=== PATIENT | male | born 1965 | race Hispanic/Latino ===

== ENCOUNTER 2020-11-11 17:00 | Emergency (ER) | payer OTHER, SELFPAY ==
--- NOTE | 2020-11-11 17:07 | ED.NAVMDI ---
HPI - Nausea/Vomiting/Diarrhea General Chief complaint: Nausea/Vomiting/Diarrhea Stated complaint: nausea/vomiting/diarrhea Time Seen by Provider: 11/11/20 17:08 Source: patient and RN notes reviewed Mode of arrival: ambulatory Limitations: no limitations History of Present Illness HPI Narrative: 55-year-old male presents to the [facility] with complaints of nausea vomiting diarrhea for 2 weeks. Related Data Allergies Allergy/AdvReac Type Severity Reaction Status Date / Time No Known Allergies Allergy Verified 11/11/20 17:03 Review of Systems Review of Systems: All systems reviewed & are unremarkable except as noted in HPI and below Constitutional: Constitutional: Reports as per HPI, Denies chills, Reports fatigue and Denies fever(s) Eyes: Eyes: Reports no additional eye complaints ENT: Reports system reviewed and no additional complaints, except as documented, Denies vertigo, Denies dizziness, Denies nasal congestion and Denies sore throat Cardiovascular: Cardiovascular: Reports no additional cardiovascular complaints and Denies chest pain Respiratory: Respiratory: Reports no additional respiratory complaints, Denies chest congestion, Denies cough, Denies dyspnea and Denies wheezing Gastrointestinal: Gastrointestinal: Reports as per HPI, Denies abdominal pain, Denies constipation, Reports diarrhea (once daily), Reports nausea and Reports vomiting Genitourinary: Genitourinary: Reports no additional male genitourinary complaints Musculoskeletal: Musculoskeletal: Reports as per HPI and Reports myalgias (generalized) Integumentary/Breasts: Skin/Breast: Reports system reviewed and no additional complaints, except as docu Neurologic: Reports system reviewed and no additional complaints, except as documented, Denies dizziness, Denies numbness and Denies weakness Psychiatric: Psychiatric: Reports no additional psychiatric complaints Allergic/Immunologic: Allergic/Immunologic: Reports no additional allergic/immunologic complaints [facility] Past Medical History Medical History (Updated 11/12/20 @ 17:20 by Beverly Montesinos) No significant medical problems Surgical History Surgical History (Updated 11/12/20 @ 17:20 by Beverly Montesinos) No significant past surgical history Social History Social History (Updated 11/12/20 @ 17:20 by Beverly Montesinos) Living arrangements: with family Gender identity (if verbalized by the patient): Male Comments At the time of my signature, I reviewed and agree with the nursing past medical, surgical, social, and family history. There is no relevant family history pertinent to the patient complaint. Exam Const: General: alert and ill appearing acutely Nutritional Appearance: well nourished Orientation/consciousness: patient oriented x3 Limitations: language barrier (Use transportation engineer) HENMT: Head: normal to inspection Ears: external ears normal, TM's normal bilaterally and EAC's normal Eyes: Pupils: Equal, round and reactive pupils present Neck: Neck: normal visual inspection, no lymphadenopathy and no meningeal signs Chest: Chest palpation & inspection: normal inspection of the chest Resp: Effort & Inspection: normal respiratory effort Auscultation: clear to auscultation bilaterally Cardio: Rate: regular rate Rhythm: regular rhythm GI: GI Palp: Yes Soft to palpation, No Tenderness to palpation present (GI), No Guarding due to palpation present (GI), No Rigid due to palpation and No Rebound tenderness present Auscultation: normal bowel sounds Urinary Catheter: Urinary Catheter: patent and draining Back/Spine/Pelvis: Back: no CVA tenderness Skin: General skin exam: normal color Rashes: no rashes Wounds: no wounds Neuro: General: patient oriented x3, moves all extremities, no meningeal signs and no focal motor deficits Speech: normal speech Gait exam (Neuro): Normal gait present Extrem: General: normal to inspection Psych: Appearance: grossly normal and well
[2020-11-11 17:16] VITALS: BP 103/71; PULSE 84; RESP 16; TEMP 37.9; O2SAT 96
== END 2020-11-11 17:48 | disposition home or self-care (01) ==
PROVIDERS: Emergency Provider Nurse Practitioner
DX: U07.1 COVID-19 (principal); J45.909 Unspecified asthma, uncomplicated
CPT/HCPCS: 87426; 99202; C9803; G0463

== ENCOUNTER 2024-05-28 17:50 | Inpatient (IN) | payer SELFPAY ==
[2024-05-28] VITALS (11 sets, daily range): BP systolic 107–126; BP diastolic 69–94; PULSE 91–127; RESP 12–22; TEMP 37.2–39.6; O2SAT 94–96; BMI 27.1
--- NOTE | ~2024-05-28 | XR_ITS ---
CHEST RADIOGRAPH CLINICAL HISTORY: fever . COMPARISON: None available TECHNIQUE: Single portable view of the chest. FINDINGS The cardiomediastinal silhouette is unremarkable. Left upper and middle lobe density for which cross-sectional imaging (noncontrast enhanced CT examina tion of the chest) is recommended. The remainder of the lungs are clear. IMPRESSION: Left upper and middle lobe density for which cross-sectional imaging (noncontrast enhanced CT examina tion of the chest) is recommended. Reviewed, dictated and finalized at location A. IMPRESSION: Left upper and middle lobe density for which cross-sectional imaging (noncontra st enhanced CT examination of the chest) is recommended.
--- NOTE | ~2024-05-28 | CT_ITS ---
CLINICAL INDICATION: Abnormal chest x-ray, Febrile illness, Nausea COMPARISON: Reference is made to plain film evaluation of the chest performed approximately 30 minute s earlier.. TECHNIQUE: An enhanced CT of the chest, abdomen and pelvis was performed utilizing multislice spiral technique reconstructed at 5 mm slice thickness. Coronal and sagittal reconstructions were performed . This CT examination was performed utilizing dose reduction techniques. DLP: 723) mGy-cm FINDINGS/OBSERVATIONS: Lung: Dense consolidation of the base of the left upper lobe with patchy opacification of the right lower l obe. The remainder of the lungs are clear. Mediastinum: Scattered mediastinal lymphadenopathy is also identified, the largest lymph node within the aortopulm onary window measuring 21 mm in short axis dimension, as well as a subcarinal lymph node measuring 17 mm in short axis dimension. No additional lymphadenopathy within the bilateral axilla, or within the soft tissues of the anterior chest wall. Soft tissues of the chest: Unremarkable. Bones of the chest: No acute fracture. No lytic or blastic lesions are identified. Liver: The liver enhances homogeneously and is enlarged measuring 21cm in longitudinal dimension. Diffuse fa tty infiltration is also noted. Gallbladder and biliary system: The gallbladder is distended, but otherwise unremarkable. Pancreas: The pancreas enhances homogeneously, without ductal dilatation. Spleen: Spleen enhances homogeneously and is enlarged measuring 14 cm in longitudinal dimension. Kidneys: The bilateral kidneys enhance symmetrically without hydronephrosis or renal calculi. Adrenal glands: Unremarkable. Gastrointestinal tract: Small hiatal hernia is present. Rectosigmoid diverticulosis is identified without surrounding inflammation to suggest diverticulitis. Appendix: The appendix demonstrates borderline thickening measuring 7.2 mm in greatest caliber (axial series, i mages 189 through 201) without surrounding inflammatory change. Vasculature: Trace calcified atherosclerotic disease is present. No aneurysmal dilatation. Lymph nodes: Scattered nonpathologically enlarged lymph nodes within the root of the mesentery and deep in the pel vis. Pelvic structures: The bladder is minimally distended and otherwise unremarkable. The prostate gland is not enlarged. Body wall and musculoskeletal: No significant degenerative disease within the lower thoracic or lumbosacral spine. IMPRESSION: Left upper lobe pneumonia with early infiltrate in the right lower lobe. Mediastinal lymphadenopathy is also detected, likely reactive. Hepatosplenomegaly. No additional acute pathology is identified within the abdomen or pelvis. Reviewed, dictated and finalized at location A.
--- NOTE | ~2024-05-28 | XR_ITS ---
Portable chest x-ray Comparison: 05/28/2024 Clinical History: Worsening leukocytosis Findings: There is worsening left upper lobe consolidation. Mild haziness left lung base noted. Righ t lung clear. Cardiomediastinal silhouette is stable. Bones and soft tissues are unremarkable. Impression: Worsening left upper lobe pneumonia. Mild nonspecific left basilar haziness could reflect additional pneumonia versus atelectatic change. Right lung clear. Reviewed, dictated and finalized at location . Impression: Worsening left upper lobe pneumonia. Mild nonspecific left basilar haziness could reflect additional pneumonia versu s atelectatic change. Right lung clear.
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
--- NOTE | 2024-05-28 18:21 | ECG_ITS ---
Test Date: 2024-05-28 18:31:45 Measurements Intervals [place] Rate: 114 P: 42 RI: 135 QRS: 31 QRSD: 114 T: 46 QT: 313 QTc: 433 Interpretive Statements SINUS TACHYCARDIA INDETERMINATE AXIS POSSIBLE LATERAL MYOCARDIAL INFARCTION , OF INDETERMINATE AGE [30 ms Q WAVE IN I/aVL/V5/V6] ABNORMAL ECG No previous ECG available for comparison Electronically Signed On 05-29-2024 12:15:35 CDT by Ranjit Diaz M.D.
[2024-05-28] MEDS: ACETAMINOPHEN 500 MG TABLET 1000 MG PO (18:25)
--- NOTE | 2024-05-28 18:46 | PC.NURSE ---
took pt temp at 1815, oral temp was 103.2, EDP gave verbal order for 1g of Tylenol
[2024-05-28 18:47] LABS: Hematocrit 34.7 % (42.0-52.0); Hemoglobin 12.4 g/dL (14.0-18.0); Immature Platelet Fraction Pct 8.6 % (0.9-11.2); Mean Corpuscular HGB Conc 35.7 g/dl (32-36); Mean Corpuscular Volume 81.3 fl (80-100); Mean Platelet Volume 11.1 fl (7.4-10.4); Platelet Count Result 127 k/mm3 (150-375); Red Blood Count 4.27 M/mm3 (4.6-6.20); Red Cell Distribution Width 12.7 % (11.5-14.5); White Blood Count 8.2 K/mm3 (4.5-10.0)
[2024-05-28 19:03] LABS: Alanine Aminotransferase 62 U/L (6-50); Albumin Level 3.6 g/dL (3.5-5.1); Alkaline Phosphatase 94 U/L (38-126); Anion Gap 11 mmol/L (4-12); Aspartate Amino Transferase 41 U/L (17-59); Bilirubin,Total 1.9 mg/dL (0.2-1.3); Blood Urea Nitrogen 19 mg/dL (9-20); Calcium 7.9 mg/dL (8.4-10.2); Carbon Dioxide 24 mmol/L (22-30); Chloride 88 mmol/L (98-107); Estimated Glomerular Filt Rate > 60; Glucose 213 mg/dL (65-110); Potassium 2.8 mmol/L (3.4-5.0); Sodium 123 mmol/L (137-145)
[2024-05-28 19:13] LABS: Band Neutrophils Percent 14 % (0-6); Lymphocytes Absolute Manual 0.65 K/mm3 (1.1-4.5); Lymphocytes Percent Manual 8 % (18-44); Metamyelocytes Percent 1 %; Monocytes Absolute Manual 0.16 K/mm3 (0.1-0.90); Monocytes Percent Manual 2 % (3-9); Myelocytes Percent 1 %; Neutrophils Absolute Manual 7.21 K/mm3 (1.3-6.7); Neutrophils Percent Manual 74 % (46-73); Total Cells Counted 100
[2024-05-28 19:14] LABS: Platelet Estimate Decreased (Adequate); Schistocytes None Seen
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
[2024-05-28 19:22] LABS: Influenza A QL RT-PCR Negative (Negative); Influenza B QL RT-PCR Negative (Negative); RSV RNA, RT-PCR Negative (Negative); SARS-CoV-2 RNA PCR Negative (Negative)
--- NOTE | 2024-05-28 19:25 | PC.NURSE ---
Assumed care of patient after receiving report from ANABELA Ramos. @ [phone]
--- NOTE | 2024-05-28 19:37 | ED_ITS ---
HPI - General Adult General Chief complaint: Fever Stated complaint: fever and hasn't ate Time Seen by Provider: 05/28/24 19:08 History of Present Illness HPI narrative: Patient is 59-year-old gentleman who presents emergency department with chief complaint of fever and sweating decreased appetite. Patient reports that he started having high fever went Urgent Care was diagnosed with bronchitis and was told to come the emergency department as his fever would not come down Related Data Allergies Allergy/AdvReac Type Severity Reaction Status Date / Time No Known Allergies Allergy Verified 05/28/24 18:41 Review of Systems 2 Review of Systems: A 10 system review of systems was completed on the patient and is negative except for what is stated in the HPI. Nursing and ancillary documentation was reviewed. [facility] Past Medical History Medical History No significant medical problems Surgical History Surgical History No significant past surgical history Social History Social History Living arrangements: with family Gender identity (if verbalized by the patient): Male Exam 2 Narrative: GENERAL: Ill-appearing, well-nourished, and in no acute distress. HEAD: Normocephalic, atraumatic. EYES: PERRLA and EOMI. ENT: Nares clear, no rhinorrhea or epistaxis. Mucous membranes moist. NECK: Supple. CHEST: Clear to auscultation. No respiratory distress. HEART: Regular rate and rhythm. No murmur heard. Normal peripheral pulses. ABDOMEN: Soft, nontender, nondistended, normal active bowel sounds. EXTREMITIES: Normal range of motion. No edema. SKIN: Warm, dry, no rash. NEURO: No focal deficits. Alert and oriented x3. PSYCH: Normal mood and affect. Course Vital Signs Vital signs: Vital Signs Temperature 39.5 C H 05/28/24 17:51 Pulse Rate 127 H 05/28/24 17:51 Respiratory Rate 16 05/28/24 17:51 Blood Pressure 118/71 05/28/24 17:51 Pulse Oximetry 95 05/28/24 17:51 Temperature 37.2 C 05/28/24 20:54 Pulse Rate 100 05/28/24 19:48 Respiratory Rate 22 H 05/28/24 19:48 Blood Pressure 110/69 05/28/24 19:48 Pulse Oximetry 95 05/28/24 19:48 Medical Decision Making Vital Signs Vital Signs: Vital Signs Temperature 39.5 C H 05/28/24 17:51 Pulse Rate 127 H 05/28/24 17:51 Respiratory Rate 16 05/28/24 17:51 Blood Pressure 118/71 05/28/24 17:51 Pulse Oximetry 95 05/28/24 17:51 Temperature 37.2 C 05/28/24 20:54 Pulse Rate 100 05/28/24 19:48 Respiratory Rate 22 H 05/28/24 19:48 Blood Pressure 110/69 05/28/24 19:48 Pulse Oximetry 95 05/28/24 19:48 Lab Data 05/28/24 18:38 05/28/24 18:38 Labs: Lab Results 05/28/24 05/28/24 05/28/24 Range/Units 18:38 18:39 19:54 WBC 8.2 (4.5-10.0) K/mm3 RBC 4.27 L (4.6-6.20) M/mm3 Hgb 12.4 L (14.0-18.0) g/dL Hct 34.7 L (42.0-52.0) % MCV 81.3 (80-100) fl MCH 29.0 (26-34) pg MCHC 35.7 (32-36) g/dl RDW 12.7 (11.5-14.5) % Plt Count 127 L (150-375) k/mm3 MPV 11.1 H (7.4-10.4) fl Immature Gran % (Auto) Not Reportable Neut % (Auto) Not Reportable Lymph % (Auto) Not Reportable [place] % (Auto) Not Reportable Eos % (Auto) Not Reportable Baso % (Auto) Not Reportable Lymph # (Auto) Not Reportable [place] # (Auto) Not Reportable Eos # (Auto) Not Reportable Baso # (Auto) Not Reportable Abs Immat Gran (auto) Not Reportable Absolute Neuts (auto) Not Reportable Absolute Nucleated RBC Not Reportable Total Counted 100 Neutrophils % (Manual) 74 H (46-73) % Band Neutrophils % 14 H (0-6) % Lymphocytes % (Manual) 8 L (18-44) % Monocytes % (Manual) 2 L (3-9) % Metamyelocytes % 1 % Myelocytes % 1 % Nucleated RBC % Not Reportable Abs Neuts (Manual) 7.21 H (1.3-6.7) K/mm3 Abs Lymphs (Manual) 0.65 L (1.1-4.5) K/mm3 Abs Monocytes (Manual) 0.16 (0.1-0.90) K/mm3 Platelet Estimate Decreased (Adequate) % Immature Plt Fraction 8.6 (0.9-11.2) % Schistocytes None seen Sodium 123 L (137-145) mmol/L Potassium 2.8 L* (3.4-5.0) mmol/L Chloride 88 L (98-107) mmol/L Carbon Dioxide 24 (22-30) mmol/L Anion Gap 11 (4-12) mmol/L BUN 19 (9-20) mg/dL Creatinine 1.10 (0.7-1.3) mg/dL Estim Creat Clear Calc Not Reportable Estimated GFR > 60 (59 - ) Glucose 213 H (65-110) mg/dL Lactic Acid 1.7 (0.7-2.0) mmol/L Calcium 7.9 L (8.4-10.2) mg/dL Magnesium 2.2 (1.6-2.3) mg/dL Total Bilirubin 1.9 H (0.2-1.3) mg/dL AST 41 (17-59) U/L ALT 62 H (6-50) U/L Alkaline Phosphatase 94 (38-126) U/L Troponin I < 0.012 (0.000-0.034) ng/mL Total Protein 8.0 (6.3-8.2) g/dL Albumin 3.6 (3.5-5.1) g/dL Lipase 241 (23-300) U/L Procalcitonin 3.5 ng/mL Urine Color Urine Appearance Urine pH Ur Specific [place] Urine Protein Urine Glucose (UA) Urine Ketones Ur Blood (Man) Urine Nitrate Urine Bilirubin Urine Urobilinogen Leukocyte Esterase Rfl Influenza A (RT-PCR) Negative (Negative) Influenza B (RT-PCR) Negative (Negative) RSV (RT-PCR) Negative (Negative) SARS-CoV-2 RNA (RT-PCR) Negative (Negative) 05/28/24 Range/Units 20:40 WBC (4.5-10.0) K/mm3 RBC (4.6-6.20) M/mm3 Hgb (14.0-18.0) g/dL Hct (42.0-52.0) % MCV (80-100) fl MCH (26-34) pg MCHC (32-36) g/dl RDW (11.5-14.5) % Plt Count (150-375) k/mm3 MPV (7.4-10.4) fl Immature Gran % (Auto) Neut % (Auto) Lymph % (Auto) [place] % (Auto) Eos % (Auto) Baso % (Auto) Lymph # (Auto) [place] # (Auto) Eos # (Auto) Baso # (Auto) Abs Immat Gran (auto) Absolute Neuts (auto) Absolute Nucleated RBC Total Counted Neutrophils % (Manual) (46-73) % Band Neutrophils % (0-6) % Lymphocytes % (Manual) (18-44) % Monocytes % (Manual) (3-9) % Metamyelocytes % % Myelocytes % % Nucleated RBC % Abs Neuts (Manual) (1.3-6.7) K/mm3 Abs Lymphs (Manual) (1.1-4.5) K/mm3 Abs Monocytes (Manual) (0.1-0.90) K/mm3 Platelet Estimate (Adequate) % Immature Plt Fraction (0.9-11.2) % Schistocytes Sodium (137-145) mmol/L Potassium (3.4-5.0) mmol/L Chloride (98-107) mmol/L Carbon Dioxide (22-30) mmol/L Anion Gap (4-12) mmol/L BUN (9-20) mg/dL Creatinine (0.7-1.3) mg/dL Estim Creat Clear Calc Estimated GFR (59 - ) Glucose (65-110) mg/dL Lactic Acid (0.7-2.0) mmol/L Calcium (8.4-10.2) mg/dL Magnesium (1.6-2.3) mg/dL Total Bilirubin (0.2-1.3) mg/dL AST (17-59) U/L ALT (6-50) U/L Alkaline Phosphatase (38-126) U/L Troponin I (0.000-0.034) ng/mL Total Protein (6.3-8.2) g/dL Albumin (3.5-5.1) g/dL Lipase (23-300) U/L Procalcitonin ng/mL Urine Color Pending Urine Appearance Pending Urine pH Pending Ur Specific [place] Pending Urine Protein Pending Urine Glucose (UA) Pending Urine Ketones Pending Ur Blood (Man) Pending Urine Nitrate Pending Urine Bilirubin Pending Urine Urobilinogen Pending Leukocyte Esterase Rfl Pending Influenza A (RT-PCR) (Negative) Influenza B (RT-PCR) (Negative) RSV (RT-PCR) (Negative) SARS-CoV-2 RNA (RT-PCR) (Negative) Discharge Plan Discharge Clinical Impression: Pneumonia Patient Disposition: Still a Patient Condition: Stable Patient Language: English Prescriptions: No Action ondansetron HCl [Zofran] 4 mg tablet 4 mg PO Q6H PRN (Reason: nausea and vomiting) Qty: 14 0RF Follow-up/Referrals: UNKNOWN,DOCTOR [Primary Care Provider] - Time of Disposition: 21:02
[2024-05-28] MEDS: SODIUM CHLORIDE 0.9% IV 1,000 ML 999 ML IV CONT ×2 (19:44)
[2024-05-28 19:48] LABS: Lipase 241 U/L (23-300); Magnesium 2.2 mg/dL (1.6-2.3)
--- NOTE | 2024-05-28 20:00 | PC.NURSE ---
Patient asked to provide urine sample and stated he is unable to. Pt stated he will try to give sample after his fluids are done.
[2024-05-28 20:01] LABS: Troponin I < 0.012 ng/mL (0.000-0.034)
[2024-05-28] MEDS: KCL 20 MEQ/SW 100 ML 100 ML 50 MEQ IVPB (20:05)
[2024-05-28 20:11] LABS: Lactic Acid Reflex 1.7 mmol/L (0.7-2.0)
[2024-05-28 20:24] LABS: Procalcitonin 3.5 ng/mL
[2024-05-28 21:03] LABS: Add Urine Microscopic? YES; Appearance Urine Clear (Clear); Bacteria Urine None Seen /hpf; Bilirubin Urine Negative (Negative); Blood Urine 1+ (Negative); Color Urine Yellow (Yellow); Glucose Urine UA Negative (Negative); Ketones Urine Negative (Negative); Leukocyte Esterase Ur Negative LEU/UL (Negative); Need Manual Microscopic Reviewed; Nitrate Urine Negative (Negative); Non Pathogenic Casts 0-2; Protein Urine 1+ mg/dL (Negative); RBC Urine 0-2 /hpf (0-2); Specific Grav Ur 1.041 (1.001-1.035); Squamous Epithelial Cell Urine None Seen /hpf (Few); WBC Urine 0-5 /hpf (0-3); pH Urine 6.5 (5.0-9.0)
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
[2024-05-28] MEDS: POTASSIUM CHLORIDE 20 MEQ PACKET (FOR LIQUID) 40 MEQ PO (21:25)
[2024-05-28] MEDS: ACETAMINOPHEN 325 MG TABLET 650 MG PO (22:45)
[2024-05-28] MEDS: SODIUM CHLORIDE 0.9% IV 1,000 ML 125 ML IV CONT (22:46)
[2024-05-28] MEDS: AZITHROMYCIN 500 MG/NS 250 ML 500 MG/250 ML BAG 250 MG IVPB (22:47)
[2024-05-29] VITALS (13 sets, daily range): BP systolic 109–134; BP diastolic 65–79; PULSE 95–111; RESP 16; TEMP 37.2–38.6; O2SAT 93–99
[2024-05-29 00:12] LABS: Anion Gap 11 mmol/L (4-12); Blood Urea Nitrogen 16 mg/dL (9-20); Calcium 7.5 mg/dL (8.4-10.2); Carbon Dioxide 21 mmol/L (22-30); Chloride 97 mmol/L (98-107); Estimated CRCL calculation 74 ml/min; Estimated Glomerular Filt Rate > 60; Glucose 154 mg/dL (65-110); Potassium 3.4 mmol/L (3.4-5.0); Sodium 129 mmol/L (137-145)
[2024-05-29] MEDS: DEXTROSE 5%/0.45% SOD CHL 1,000 ML 125 ML IV CONT ×2 (01:30→12:02)
[2024-05-29 07:00] LABS: Hematocrit 35.2 % (42.0-52.0); Hemoglobin 12.2 g/dL (14.0-18.0); Mean Corpuscular HGB Conc 34.7 g/dl (32-36); Mean Corpuscular Hemoglobin 29.2 pg (26-34); Mean Corpuscular Volume 84.2 fl (80-100); Mean Platelet Volume 11.8 fl (7.4-10.4); Platelet Count Result 144 k/mm3 (150-375); Red Blood Count 4.18 M/mm3 (4.6-6.20); Red Cell Distribution Width 13.2 % (11.5-14.5); White Blood Count 9.9 K/mm3 (4.5-10.0)
[2024-05-29 07:07] LABS: Alanine Aminotransferase 62 U/L (6-50); Albumin Level 3.2 g/dL (3.5-5.1); Alkaline Phosphatase 89 U/L (38-126); Anion Gap 6 mmol/L (4-12); Aspartate Amino Transferase 45 U/L (17-59); Bilirubin,Total 1.6 mg/dL (0.2-1.3); Blood Urea Nitrogen 13 mg/dL (9-20); Calcium 7.8 mg/dL (8.4-10.2); Carbon Dioxide 27 mmol/L (22-30); Chloride 97 mmol/L (98-107); Estimated CRCL calculation 80 ml/min; Estimated Glomerular Filt Rate > 60; Glucose 181 mg/dL (65-110); Potassium 3.3 mmol/L (3.4-5.0); Sodium 130 mmol/L (137-145)
[2024-05-29 07:29] LABS: Band Neutrophils Percent 28 % (0-6); Lymphocytes Absolute Manual 1.28 K/mm3 (1.1-4.5); Monocytes Absolute Manual 0.09 K/mm3 (0.1-0.90); Monocytes Percent Manual 1 % (3-9); Neutrophils Absolute Manual 8.51 K/mm3 (1.3-6.7); Neutrophils Percent Manual 58 % (46-73); Total Cells Counted 100
[2024-05-29 07:30] LABS: Platelet Estimate Slightly Decreased (Adequate); Schistocytes None Seen
--- NOTE | 2024-05-29 09:33 | P.PNIM_ITS ---
Progress Note: A&P Assessment and Plan (1) Pneumonia: Qualifiers: Laterality: bilateral Lung location: unspecified part of lung Pneumonia type: due to unspecified organism Qualified Code(s): J18.9 - Pneumonia, unspecified organism Code(s): J18.9 - Pneumonia, unspecified organism Status: Acute Assessment and Plan: Azithromycin and Rocephin Blood cultures pending (2) Dehydration with hyponatremia: Code(s): E86.0 - Dehydration; E87.1 - Hypo-osmolality and hyponatremia Status: Acute Assessment and Plan: Given 2 L NS in ED D5 1/2NS @125 Daily BMP (3) Hypokalemia: Code(s): E87.6 - Hypokalemia Status: Acute Assessment and Plan: Daily BMP Replete as needed (4) Hyperbilirubinemia: Code(s): E80.6 - Other disorders of bilirubin metabolism Status: Acute Assessment and Plan: Trending down hepatic steatosis noted on imaging Daily CMP (5) Alcohol use: Code(s): F10.90 - Alcohol use, unspecified, uncomplicated Status: Acute Assessment and Plan: He does report that he drinks 2-3 alcoholic beverages every day and he drinks about a 6 pack on the weekends. He has not drink as much this past week due to feeling ill. Monitor for withdrawals (6) Hyperglycemia: Code(s): R73.9 - Hyperglycemia, unspecified Status: Acute Assessment and Plan: A1c 6.0 Elevated glucose is likely due to patient being on D5 ACHS SSI Time Spent With Patient Time with patient: Greater than 35 minutes Subjective Date/time seen: 05/29/24 09:33 Interval history: 59-year-old male with no known past medical history who presented to the ER and ambulated to the ER complaining of fever and sweating a lot found to have pneumonia. Patient wishes to use son is gasser machine operator. Patient is updated on CT findings of fatty liver, states that he is not a daily drinker however he is willing to quit. Review of Systems Review of Systems: 12 systems were reviewed with pertinent positives and negatives per HPI. Except as documented in the HPI, all other systems were reviewed and are negative. Exam Narrative: General: well appearing, appears stated age. HEENT: normocephalic, atraumatic. Mucous membranes moist. EOMI, PERRLA, b ilateral sclera anicteric, no conjunctival injection. Neck supple without JVD, lymphadenopathy, or bruit. Respiratory: clear to ascultation bilaterally. No rales/rhonic/wheezes. Cardiovascular: Regular rate and rhythm, normal S1-S2 upon ascultation. No murmurs, rubs, or clicks. PMI is nondisplaced, capillary refill less than 3 second. Abdomen: Soft, round, no pulsatile masses, nondistended and nontender. No rebound, no guarding. No CVA tenderness, no hepatosplenomegaly. Bowel sounds present to all four quadrants. No high pitch or tinkling sounds, resonant to percussion. Extremities: No cyanosis, clubbing, or edema present. Pulses are palpable 2/2. Active ROM to all four extremities. Neuro: Alert and orientated x 4. PERRLA. Cranial nerves 2-12 intact without focal deficit. Skin: Warm, dry, and intact, without rash, erythema, or lesion. Psych: pleasant, cooperative, normal speech, normal affect, no hallucinations, no dysarthia Objective Data Vital Signs Vital Signs: Vital Signs - 24 hr 05/28/24 17:51 05/28/24 18:15 05/28/24 18:16 Temperature 103.1 F H 103.2 F H Pulse Rate 127 H 116 H Respiratory Rate 16 22 H Blood Pressure 118/71 124/78 126/74 Pulse Oximetry 95 95 95 Oxygen Delivery 05/28/24 18:42 05/28/24 18:46 05/28/24 19:48 Temperature Pulse Rate 121 H 100 Respiratory Rate 18 16 22 H Blood Pressure 120/94 H 110/69 Pulse Oximetry 94 95 95 Oxygen Delivery 05/28/24 20:51 05/28/24 20:54 05/28/24 21:32 Temperature 99.0 F 99 F Pulse Rate 91 Respiratory Rate 12 Blood Pressure Pulse Oximetry 96 Oxygen Delivery 05/28/24 22:18 05/28/24 23:17 05/29/24 00:00 Temperature 99.4 F Pulse Rate 95 95 106 H Respiratory Rate 16 16 Blood Pressure 107/76 Pulse Oximetry 95 95 Oxygen Delivery Room Air 05/29/24 04:00 05/29/24 05:29 Temperature 99.4 F Pulse Rate 102 H 97 Respiratory Rate 16 Blood Pressure 109/65 Pulse Oximetry 99 Oxygen Delivery Intake/Output Intake/Output: Intake & Output 05/26/24 05/27/24 05/28/2425 23:59 23:59 23:59 23:59 Intake Total 1400 250 Output Total 350 Balance 1050 250 Meds/Results Medications: Active Medications Generic Name Dose Route Start Last Admin Trade Name Freq PRN Reason Stop Dose Admin Acetaminophen 650 mg 05/28/24 21:22 05/28/24 22:45 Acetaminophen 325 Mg Tablet PO 650 mg Q4H PRN Administration Mild Pain (1-3) or Fever Al Hydrox/Mg Hydrox/Simethicone 30 ml 05/28/24 21:23 Mag Hydrox/Al Hydrox/Simeth 30 Ml Udc PO Q6H PRN Indigestion Enoxaparin Sodium 40 mg 05/29/24 09:00 Enoxaparin 40 Mg/0.4 Ml Syringe SUB-Q DAILY GAYE Ceftriaxone Sodium 1 gm in 50 mls @ 100 mls/hr 05/29/24 21:00 Rocephin 1 Gm/Ns 50 Ml IVPB Q24H GAYE Azithromycin 500 mg in 250 mls @ 250 mls/hr 05/29/24 22:00 Zithromax IVPB Q24H GAYE Dextrose/Sodium Chloride 1,000 mls @ 125 mls/hr 05/29/24 00:50 05/29/24 01:30 Dextrose 5% Sodium Chloride 0.45% IV CONT 125 mls/hr .Q8H GAYE Administration Ibuprofen 600 mg 05/28/24 21:22 Ibuprofen 600 Mg Tablet PO Q6H PRN Pain 4-6 or fever Ondansetron HCl 4 mg 05/28/24 21:23 Ondansetron Inj 4 Mg/2 Ml Vial IV PUSH Q6H PRN Nausea And Vomiting Radiology Results: ITS Impressions Chest X-Ray 05/28/24 19:19 IMPRESSION: Left upper and middle lobe density for which cross-sectional imaging (noncontrast enhanced CT examination of the chest) is recommended. Chest/Abdomen/Pelvis CT 05/28/24 19:44 IMPRESSION: Left upper lobe pneumonia with early infiltrate in the right lower lobe. Mediastinal lymphadenopathy is also detected, likely reactive. Hepatosplenomegaly. No additional acute pathology is identified within the abdomen or pelvis. Labs Labs: Laboratory Results - last 24 hr 05/28/24 05/28/24 05/28/24 18:38 18:39 19:54 WBC 8.2 RBC 4.27 L Hgb 12.4 L Hct 34.7 L MCV 81.3 MCH 29.0 MCHC 35.7 RDW 12.7 Plt Count 127 L MPV 11.1 H Immature Gran % (Auto) Not Reportable Neut % (Auto) Not Reportable Lymph % (Auto) Not Reportable [place] % (Auto) Not Reportable Eos % (Auto) Not Reportable Baso % (Auto) Not Reportable Lymph # (Auto) Not Reportable [place] # (Auto) Not Reportable Eos # (Auto) Not Reportable Baso # (Auto) Not Reportable Abs Immat Gran (auto) Not Reportable Absolute Neuts (auto) Not Reportable Absolute Nucleated RBC Not Reportable Total Counted 100 Neutrophils % (Manual) 74 H Band Neutrophils % 14 H Lymphocytes % (Manual) 8 L Monocytes % (Manual) 2 L Metamyelocytes % 1 Myelocytes % 1 Nucleated RBC % Not Reportable Abs Neuts (Manual) 7.21 H Abs Lymphs (Manual) 0.65 L Abs Monocytes (Manual) 0.16 Platelet Estimate Decreased % Immature Plt Fraction 8.6 Schistocytes None seen Sodium 123 L Potassium 2.8 L* Chloride 88 L Carbon Dioxide 24 Anion Gap 11 BUN 19 Creatinine 1.10 Estim Creat Clear Calc Not Reportable Estimated GFR > 60 Glucose 213 H Hemoglobin A1c Lactic Acid 1.7 Calcium 7.9 L Magnesium 2.2 Total Bilirubin 1.9 H AST 41 ALT 62 H Alkaline Phosphatase 94 Troponin I < 0.012 Total Protein 8.0 Albumin 3.6 Lipase 241 Procalcitonin 3.5 Urine Color Urine Appearance Urine pH Ur Specific Andrews Urine Protein Urine Glucose (UA) Urine Ketones Ur Blood (Man) Urine Nitrate Urine Bilirubin Urine Urobilinogen Add Ur Microanalysis Leukocyte Esterase Rfl Urine RBC Urine WBC Ur Squamous Epith Cells Urine Bacteria Urine Casts Influenza A (RT-PCR) Negative Influenza B (RT-PCR) Negative RSV (RT-PCR) Negative SARS-CoV-2 RNA (RT-PCR) Negative 05/28/24 05/28/24 05/29/24 20:40 23:57 06:14 WBC 9.9 RBC 4.18 L Hgb 12.2 L Hct 35.2 L MCV 84.2 MCH 29.2 MCHC 34.7 RDW 13.2 Plt Count 144 L MPV 11.8 H Immature Gran % (Auto) Not Reportable Neut % (Auto) Not Reportable Lymph % (Auto) Not Reportable [place] % (Auto) Not Reportable Eos % (Auto) Not Reportable Baso % (Auto) Not Reportable Lymph # (Auto) Not Reportable [place] # (Auto) Not Reportable Eos # (Auto) Not Reportable Baso # (Auto) Not Reportable Abs Immat Gran (auto) Not Reportable Absolute Neuts (auto) Not Reportable Absolute Nucleated RBC Not Reportable Total Counted 100 Neutrophils % (Manual) 58 Band Neutrophils % 28 H Lymphocytes % (Manual) 13.0 L Monocytes % (Manual) 1 L Metamyelocytes % Myelocytes % Nucleated RBC % Not Reportable Abs Neuts (Manual) 8.51 H Abs Lymphs (Manual) 1.28 Abs Monocytes (Manual) 0.09 L Platelet Estimate Slightly decreased % Immature Plt Fraction Schistocytes None seen Sodium 129 L 130 L Potassium 3.4 3.3 L Chloride 97 L 97 L Carbon Dioxide 21 L 27 Anion Gap 11 6 BUN 16 13 Creatinine 0.95 0.88 Estim Creat Clear Calc 74 80 Estimated GFR > 60 > 60 Glucose 154 H 181 H Hemoglobin A1c 6.0 H Lactic Acid Calcium 7.5 L 7.8 L Magnesium Total Bilirubin 1.6 H AST 45 ALT 62 H Alkaline Phosphatase 89 Troponin I Total Protein 7.0 Albumin 3.2 L Lipase Procalcitonin Urine Color Yellow Urine Appearance Clear Urine pH 6.5 Ur Specific Andrews 1.041 H Urine Protein 1+ H Urine Glucose (UA) Negative Urine Ketones Negative Ur Blood (Man) 1+ H Urine Nitrate Negative Urine Bilirubin Negative Urine Urobilinogen 1.0 Add Ur Microanalysis Reviewed Leukocyte Esterase Rfl Negative Urine RBC 0-2 Urine WBC 0-5 Ur Squamous Epith Cells None seen Urine Bacteria None seen Urine Casts 0-2 Influenza A (RT-PCR) Influenza B (RT-PCR) RSV (RT-PCR) SARS-CoV-2 RNA (RT-PCR) Quality VTE Prophylaxis VTE prophylaxis: pharmacologic ordered (Lovenox 40 mg subQ daily.)
[2024-05-29] MEDS: POTASSIUM CHLORIDE 20 MEQ PACKET (FOR LIQUID) 40 MEQ PO (12:02)
[2024-05-29] MEDS: ACETAMINOPHEN 325 MG TABLET 650 MG PO ×2 (15:07→20:34)
[2024-05-29 16:47] LABS: Glucose Point of Care 205 mg/dl (65-105)
[2024-05-29 20:47] LABS: Glucose Point of Care 190 mg/dl (65-105)
[2024-05-29] MEDS: AZITHROMYCIN 500 MG/NS 250 ML 500 MG/250 ML BAG 250 MG IVPB (22:04)
[2024-05-29 23:55] LABS: Folic Acid 13.4 ng/mL (2.76->20)
[2024-05-30] VITALS (10 sets, daily range): BP systolic 114–124; BP diastolic 65–76; PULSE 78–108; RESP 16–22; TEMP 36.1–37.9; O2SAT 95–97
[2024-05-30] MEDS: DEXTROSE 5%/0.45% SOD CHL 1,000 ML 125 ML IV CONT ×2 (03:06→17:48)
[2024-05-30] MEDS: ACETAMINOPHEN 325 MG TABLET 650 MG PO (04:53)
[2024-05-30 06:31] LABS: Hemoglobin 11.9 g/dL (14.0-18.0); Mean Corpuscular Hemoglobin 29.3 pg (26-34); Mean Corpuscular Volume 83.7 fl (80-100); Mean Platelet Volume 11.6 fl (7.4-10.4); Platelet Count Result 180 k/mm3 (150-375); Red Blood Count 4.06 M/mm3 (4.6-6.20); Red Cell Distribution Width 13.2 % (11.5-14.5); White Blood Count 12.5 K/mm3 (4.5-10.0)
[2024-05-30 07:52] LABS: Alanine Aminotransferase 78 U/L (6-50); Albumin Level 3.2 g/dL (3.5-5.1); Alkaline Phosphatase 114 U/L (38-126); Anion Gap 9 mmol/L (4-12); Aspartate Amino Transferase 64 U/L (17-59); Bilirubin,Total 1.6 mg/dL (0.2-1.3); Blood Urea Nitrogen 14 mg/dL (9-20); Calcium 8.3 mg/dL (8.4-10.2); Carbon Dioxide 27 mmol/L (22-30); Chloride 96 mmol/L (98-107); Estimated CRCL calculation 81 ml/min; Estimated Glomerular Filt Rate > 60; Glucose 144 mg/dL (65-110); Potassium 2.8 mmol/L (3.4-5.0); Sodium 132 mmol/L (137-145)
[2024-05-30 08:32] LABS: Glucose Point of Care 132 mg/dl (65-105)
--- NOTE | 2024-05-30 08:48 | P.PNIM_ITS ---
Progress Note: A&P Assessment and Plan (1) Pneumonia: Qualifiers: Laterality: bilateral Lung location: unspecified part of lung Pneumonia type: due to unspecified organism Qualified Code(s): J18.9 - Pneumonia, unspecified organism Code(s): J18.9 - Pneumonia, unspecified organism Status: Acute Assessment and Plan: Azithromycin and Rocephin Blood cultures no growth today Leukocytosis increasing repeat chest x-ray in morning DuoNeveronika Guaifenesin (2) Dehydration with hyponatremia: Code(s): E86.0 - Dehydration; E87.1 - Hypo-osmolality and hyponatremia Status: Acute Assessment and Plan: Improved Given 2 L NS in ED Continue D5 1/2NS @125 Daily BMP (3) Hypokalemia: Code(s): E87.6 - Hypokalemia Status: Acute Assessment and Plan: Daily BMP Replete as needed 05/30 critical potassium received 40 mEq IV and 40 p.o. (4) Hyperbilirubinemia: Code(s): E80.6 - Other disorders of bilirubin metabolism Status: Acute Assessment and Plan: Trending down hepatic steatosis noted on imaging Daily CMP (5) Alcohol use: Code(s): F10.90 - Alcohol use, unspecified, uncomplicated Status: Acute Assessment and Plan: He does report that he drinks 2-3 alcoholic beverages every day and he drinks about a 6 pack on the weekends. He has not drink as much this past week due to feeling ill. Monitor for withdrawals, no signs of withdrawal at this time Counseling provided (6) Hyperglycemia: Code(s): R73.9 - Hyperglycemia, unspecified Status: Acute Assessment and Plan: A1c 6.0 ACHS SSI Time Spent With Patient Time with patient: Greater than 35 minutes Subjective Date/time seen: 05/30/24 08:48 Interval history: 59-year-old male with no known past medical history who presented to the ER and ambulated to the ER complaining of fever and sweating a lot found to have pneumonia. Patient wishes to use daughter is management expert instead of tele management expert. Patient states that he is feeling better than yesterday. Increase leukocytosis on a.m. labs, critical potassium 2.8 replaced, slight elevation in AST and ALT. Review of Systems Review of Systems: 12 systems were reviewed and are negativ e except for as per HPI. Exam Narrative: General: well appearing, appears stated age. HEENT: normocephalic, atraumatic. Mucous membranes moist. EOMI, PERRLA, bilateral sclera anicteric, no conjunctival injection. Neck supple without JVD, lymphadenopathy, or bruit. Respiratory: Expiratory wheezes Cardiovascular: Regular rate and rhythm, normal S1-S2 upon ascultation. No murmurs, rubs, or clicks. PMI is nondisplaced, capillary refill less than 3 second. Abdomen: Soft, round, no pulsatile masses, nondistended and nontender. No rebound, no guarding. No CVA tenderness, no hepatosplenomegaly. Bowel sounds present to all four quadrants. No high pitch or tinkling sounds, resonant to percussion. Extremities: No cyanosis, clubbing, or edema present. Pulses are palpable 2/2. Active ROM to all four extremities. Neuro: Alert and orientated x 4. PERRLA. Cranial nerves 2-12 intact without focal deficit. Skin: Warm, dry, and intact, without rash, erythema, or lesion. Psych: pleasant, cooperative, normal speech, normal affect, no hallucinations, no dysarthia Objective Data Vital Signs Vital Signs: Vital Signs - 24 hr 05/29/24 11:22 05/29/24 11:22 05/29/24 12:00 Temperature Pulse Rate 111 H 109 H Respiratory Rate Blood Pressure Pulse Oximetry Oxygen Delivery Room Air 05/29/24 14:00 05/29/24 15:07 05/29/24 16:00 Temperature 101.4 F H 101.4 F H Pulse Rate 110 H 102 H Respiratory Rate 16 Blood Pressure 134/73 Pulse Oximetry 93 Oxygen Delivery 05/29/24 16:07 05/29/24 20:00 05/29/24 20:34 Temperature 100.3 F H 100.1 F H Pulse Rate 103 H Respiratory Rate Blood Pressure Pulse Oximetry Oxygen Delivery 05/29/24 21:28 05/29/24 21:34 05/30/24 00:00 Temperature 100.1 F H 98.9 F Pulse Rate 95 108 H Respiratory Rate 16 Blood Pressure 115/79 Pulse Oximetry 95 Oxygen Delivery 05/30/24 04:00 05/30/24 04:53 05/30/24 05:20 Temperature 100.3 F H 100.3 F H Pulse Rate 90 93 Respiratory Rate 16 Blood Pressure 114/72 Pulse Oximetry 95 Oxygen Delivery 05/30/24 05:53 Temperature 99.1 F Pulse Rate Respiratory Rate Blood Pressure Pulse Oximetry Oxygen Delivery Intake/Output Intake/Output: Intake & Output 05/27/24 05/28/24 05/29/24 05/30/24 23:59 23:59 23:59 23:59 Intake Total 1400 3270 400 Output Total 350 Balance 1050 3270 400 Meds/Results Medications: Active Medications Generic Name Dose Route Start Last Admin Trade Name Freq PRN Reason Stop Dose Admin Acetaminophen 650 mg 05/28/24 21:22 05/30/24 04:53 Acetaminophen 325 Mg Tablet PO 650 mg Q4H PRN Administration Mild Pain (1-3) or Fever Al Hydrox/Mg Hydrox/Simethicone 30 ml 05/28/24 21:23 Mag Hydrox/Al Hydrox/Simeth 30 Ml Udc PO Q6H PRN Indigestion Dextrose 12.5 gm 05/29/24 10:05 Dextrose 50% 25 Gm/50 Ml Syringe IV PUSH PRN PRN Hypoglycemia Protocol Enoxaparin Sodium 40 mg 05/29/24 09:00 05/29/24 11:58 Enoxaparin 40 Mg/0.4 Ml Syringe SUB-Q Not Given DAILY GAYE Glucagon 1 mg 05/29/24 10:05 Glucagon For Inj 1 Mg Vial IM PRN PRN Hypoglycemia Protocol Glucose 15 gm 05/29/24 10:05 Glucose Oral Gel 15 Gm Of Glucse In 37.5 Gm Tube PO PRN PRN Hypoglycemia Protocol Ceftriaxone Sodium 1 gm in 50 mls @ 100 mls/hr 05/29/24 21:00 05/29/24 20:56 Rocephin 1 Gm/Ns 50 Ml IVPB Infused Q24H GAYE Infusion Azithromycin 500 mg in 250 mls @ 250 mls/hr 05/29/24 22:00 05/29/24 23:08 Zithromax IVPB Infused Q24H GAYE Infusion Dextrose/Sodium Chloride 1,000 mls @ 125 mls/hr 05/29/24 00:50 05/30/24 03:06 Dextrose 5% Sodium Chloride 0.45% IV CONT 125 mls/hr .Q8H GAYE Administration Dextrose 1,000 mls @ 100 mls/hr 05/29/24 10:05 Dextrose 5% 1,000 Ml IVPB PRN PRN Hypoglycemia Protocol Ibuprofen 600 mg 05/28/24 21:22 Ibuprofen 600 Mg Tablet PO Q6H PRN Pain 4-6 or fever Insulin Aspart 2 - 5 units 05/29/24 12:00 05/29/24 17:49 Insulin Aspart (*Bkc) 100 Units/Ml SUB-Q Not Given TIDWM [facility] Protocol Insulin Aspart 1 - 2 units 05/29/24 21:00 05/29/24 20:27 Insulin Aspart (*Bkc) 100 Units/Ml SUB-Q Not Given HS [facility] Protocol Lorazepam 1 mg 05/29/24 10:07 Lorazepam (*Crx) 1 Mg Tablet PO Q4H PRN Withdrawal Ondansetron HCl 4 mg 05/28/24 21:23 Ondansetron Inj 4 Mg/2 Ml Vial IV PUSH Q6H PRN Nausea And Vomiting Saliva Substitute 15 ml 05/29/24 16:49 Saliva Substitute Combo Rinse 237 Ml Bottle PO QID PRN Dry Mouth Thiamine HCl 100 mg 05/30/24 09:00 Thiamine Hcl 200 Mg/2 Ml Vial IV PUSH DAILY [facility] Radiology Results: ITS Impressions Chest X-Ray 05/28/24 19:19 IMPRESSION: Left upper and middle lobe density for which cross-sectional imaging (noncontrast enhanced CT examination of the chest) is recommended. Chest/Abdomen/Pelvis CT 05/28/24 19:44 IMPRESSION: Left upper lobe pneumonia with early infiltrate in the right lower lobe. Mediastinal lymphadenopathy is also detected, likely reactive. Hepatosplenomegaly. No additional acute pathology is identified within the abdomen or pelvis. Labs Labs: Laboratory Results - last 24 hr 05/29/24 05/29/24 05/29/24 06:10 16:39 20:11 WBC RBC Hgb Hct MCV MCH MCHC RDW Plt Count MPV Sodium Potassium Chloride Carbon Dioxide Anion Gap BUN Creatinine Estim Creat Clear Calc Estimated GFR Glucose POC Capillary Glucose 205 H 190 H Calcium Total Bilirubin AST ALT Alkaline Phosphatase Total Protein Albumin Vitamin B12 683.0 Folate 13.4 05/30/24 05/30/24 05:56 08:25 WBC 12.5 H RBC 4.06 L Hgb 11.9 L Hct 34.0 L MCV 83.7 MCH 29.3 MCHC 35.0 RDW 13.2 Plt Count 180 MPV 11.6 H Sodium 132 L Potassium 2.8 L* Chloride 96 L Carbon Dioxide 27 Anion Gap 9 BUN 14 Creatinine 0.86 Estim Creat Clear Calc 81 Estimated GFR > 60 Glucose 144 H POC Capillary Glucose 132 H Calcium 8.3 L Total Bilirubin 1.6 H AST 64 H ALT 78 H Alkaline Phosphatase 114 Total Protein 7.0 Albumin 3.2 L Vitamin B12 Folate Quality VTE Prophylaxis VTE prophylaxis: pharmacologic ordered (Lovenox 40 mg subQ daily.)
[2024-05-30] MEDS: POTASSIUM CHLORIDE 20 MEQ PACKET (FOR LIQUID) 40 MEQ PO (09:08)
[2024-05-30] MEDS: POTASSIUM CHLORIDE INJ 40 MEQ in SODIUM CHLORIDE 0.9% IV 500 ML 130 MEQ IVPB (09:08)
[2024-05-30] MEDS: THIAMINE HCL 200 MG/2 ML VIAL 100 MG IV PUSH (09:09)
[2024-05-30] MEDS: ENOXAPARIN 40 MG/0.4 ML SYRINGE SUB-Q (09:18)
[2024-05-30 12:16] LABS: Glucose Point of Care 191 mg/dl (65-105)
--- NOTE | 2024-05-30 15:40 | PCRCNOTE ---
Window of time for administration has passed. See next scheduled administration.
[2024-05-30 17:09] LABS: Glucose Point of Care 172 mg/dl (65-105)
[2024-05-30 21:33] LABS: Glucose Point of Care 166 mg/dl (65-105)
[2024-05-30] MEDS: IPRATROPIUM 0.5 MG/ALBUTEROL SULFATE 2.5 MG AMPUL.NEB 3 ML INHALATION (21:55)
[2024-05-30] MEDS: AZITHROMYCIN 500 MG/NS 250 ML 500 MG/250 ML BAG 250 MG IVPB (22:47)
[2024-05-31] VITALS (10 sets, daily range): BP systolic 118–128; BP diastolic 71–76; PULSE 71–88; RESP 13–22; TEMP 36.1–37; O2SAT 96
[2024-05-31] MEDS: IPRATROPIUM 0.5 MG/ALBUTEROL SULFATE 2.5 MG AMPUL.NEB 3 ML INHALATION ×4 (02:48→22:04)
[2024-05-31] MEDS: DEXTROSE 5%/0.45% SOD CHL 1,000 ML 125 ML IV CONT (05:48)
[2024-05-31 05:59] LABS: Hematocrit 30.4 % (42.0-52.0); Hemoglobin 10.4 g/dL (14.0-18.0); Mean Corpuscular HGB Conc 34.2 g/dl (32-36); Mean Corpuscular Hemoglobin 28.8 pg (26-34); Mean Corpuscular Volume 84.2 fl (80-100); Platelet Count Result 204 k/mm3 (150-375); Red Blood Count 3.61 M/mm3 (4.6-6.20); Red Cell Distribution Width 13.3 % (11.5-14.5); White Blood Count 8.9 K/mm3 (4.5-10.0)
[2024-05-31 06:18] LABS: Alanine Aminotransferase 76 U/L (6-50); Albumin Level 2.8 g/dL (3.5-5.1); Alkaline Phosphatase 124 U/L (38-126); Anion Gap 7 mmol/L (4-12); Aspartate Amino Transferase 69 U/L (17-59); Blood Urea Nitrogen 14 mg/dL (9-20); Calcium 7.8 mg/dL (8.4-10.2); Carbon Dioxide 27 mmol/L (22-30); Chloride 99 mmol/L (98-107); Estimated CRCL calculation 99 ml/min; Estimated Glomerular Filt Rate > 60; Glucose 157 mg/dL (65-110); Potassium 2.5 mmol/L (3.4-5.0); Sodium 133 mmol/L (137-145)
[2024-05-31] MEDS: POTASSIUM CHLORIDE INJ 40 MEQ in SODIUM CHLORIDE 0.9% IV 500 ML 130 MEQ IVPB ×2 (06:48→11:58)
[2024-05-31] MEDS: POTASSIUM CHLORIDE 20 MEQ PACKET (FOR LIQUID) 40 MEQ PO ×2 (06:49→16:40)
[2024-05-31 07:39] LABS: Glucose Point of Care 126 mg/dl (65-105)
--- NOTE | 2024-05-31 09:05 | P.PNIM_ITS ---
Progress Note: A&P Assessment and Plan (1) Alcohol use: Code(s): F10.90 - Alcohol use, unspecified, uncomplicated Status: Acute (2) Hyperglycemia: Code(s): R73.9 - Hyperglycemia, unspecified Status: Acute (3) Hepatic steatosis: Code(s): K76.0 - Fatty (change of) liver, not elsewhere classified Status: Acute (4) Hypokalemia: Code(s): E87.6 - Hypokalemia Status: Acute (5) Dehydration with hyponatremia: Code(s): E86.0 - Dehydration; E87.1 - Hypo-osmolality and hyponatremia Status: Acute (6) Sepsis: Qualifiers: Sepsis acute organ dysfunction status: without acute organ dysfunction Sepsis type: sepsis due to unspecified organism Qualified Code(s): A41.9 - Sepsis, unspecified organism Code(s): A41.9 - Sepsis, unspecified organism Status: Acute (7) Pneumonia: Qualifiers: Laterality: bilateral Lung location: unspecified part of lung Pneumonia type: due to unspecified organism Qualified Code(s): J18.9 - Pneumonia, unspecified organism Code(s): J18.9 - Pneumonia, unspecified organism Status: Acute Plan (1) Pneumonia: Qualifiers: Laterality: bilateral Lung location: unspecified part of lung Pneumonia type: due to unspecified organism Qualified Code(s): J18.9 - Pneumonia, unspecified organism Code(s): J18.9 - Pneumonia, unspecified organism Status: Acute Assessment and Plan: Azithromycin and Rocephin Blood cultures no growth Leukocytosis resolved Still has cough with scant phlegm State today (2) Dehydration with hyponatremia: Code(s): E86.0 - Dehydration; E87.1 - Hypo-osmolality and hyponatremia Status: Acute Assessment and Plan: Improved Given 2 L NS in ED on D5 1/2NS @125, sodium still low Will change to normal saline IV Daily BMP (3) Hypokalemia: Code(s): E87.6 - Hypokalemia Status: Acute Assessment and Plan: Daily BMP Replete as needed 05/30 critical potassium received 40 mEq IV and 40 p.o. Potassium 2.5 after potassium replacement yesterday, start potassium chloride 40 mg IV once and b.i.d. p.o. 05/31 (4) Hyperbilirubinemia: Code(s): E80.6 - Other disorders of bilirubin metabolism Status: Acute Assessment and Plan: Trending down hepatic steatosis noted on imaging Daily CMP (5) Alcohol use: Code(s): F10.90 - Alcohol use, unspecified, uncomplicated Status: Acute Assessment and Plan: He does report that he drinks 2-3 alcoholic beverages every day and he drinks about a 6 pack on the weekends. He has not drink as much this past week due to feeling ill. Monitor for withdrawals, no signs of withdrawal at this time Counseling provided Hyperglycemia: Code(s): R73.9 - Hyperglycemia, unspecified Status: Acute Assessment and Plan: A1c 6.0 ACHS SSI Moderate malnutrition Provide Ensure 1 bottle b.i.d. Subjective Date/time seen: 05/31/24 09:05 Interval history: I saw examined the patient in present patient's family. Patient feels better, but has a poor appetite, patient has cough with scant phlegm patient denies abdomen pain, nausea vomiting diarrhea. Labs reviewed, Exam Narrative: GENERAL: Ill-appearing in no acute distress. Well-nourished. - EYES: EOMI. Anicteric. - HENT: Moist mucous membranes. - LUNGS: Clear to auscultation bilateral ly, no wheezing, rhonchi, or rales. - CARDIOVASCULAR: Regular rate and rhyth m. No murmur. No JVD. - ABDOMEN: Soft, non-tender and non-dist ended. No palpable masses. - EXTREMITIES: No edema. Peripheral puls es 2+. Non-tender. - NEUROLOGIC: No focal neurological defi cits. CN II-XII grossly intact. - PSYCHIATRIC: Awake, Alert and oriented x 3. Appropriate mood and affect. - SKIN: No rashes or lesions. Warm. - LYMPH: No cervical lymphadenopathy. Objective Data Vital Signs Vital Signs: Vital Signs - 24 hr 05/30/24 09:18 05/30/24 09:18 05/30/24 14:00 Temperature 97.0 F L Pulse Rate 78 90 Respiratory Rate 16 Blood Pressure 116/65 Pulse Oximetry 97 Oxygen Delivery Room Air Fraction of Inspired Oxygen 05/30/24 20:44 05/30/24 21:55 05/30/24 21:55 Temperature 98.6 F Pulse Rate 89 80 80 Respiratory Rate 22 H 20 20 Blood Pressure 124/76 Pulse Oximetry 95 96 Oxygen Delivery Room Air Fraction of Inspired Oxygen 21 05/30/24 22:10 05/31/24 02:48 05/31/24 02:55 Temperature Pulse Rate 86 72 74 Respiratory Rate 20 22 H 20 Blood Pressure Pulse Oximetry Oxygen Delivery Fraction of Inspired Oxygen 05/31/24 06:00 05/31/24 08:00 05/31/24 08:28 Temperature Pulse Rate 74 Respiratory Rate 18 20 Blood Pressure Pulse Oximetry 96 Oxygen Delivery Room Air Fraction of Inspired Oxygen Intake/Output Intake/Output: Intake & Output 05/28/24 05/29/24 05/30/24 05/31/24 23:59 23:59 23:59 23:59 Intake Total 1400 3270 2320 1000 Output Total 350 Balance 1050 3270 2320 1000 Meds/Results Medications: Active Medications Generic Name Dose Route Start Last Admin Trade Name Freq PRN Reason Stop Dose Admin Acetaminophen 650 mg 05/28/24 21:22 05/30/24 04:53 Acetaminophen 325 Mg Tablet PO 650 mg Q4H PRN Administration Mild Pain (1-3) or Fever Al Hydrox/Mg Hydrox/Simethicone 30 ml 05/28/24 21:23 Mag Hydrox/Al Hydrox/Simeth 30 Ml Udc PO Q6H PRN Indigestion Albuterol/Ipratropium 3 ml 05/30/24 14:00 05/31/24 08:26 Ipratropium 0.5 Mg/Albuterol Sulfate 2.5 Mg Ampul.Neb 3 Ml INHALATION 3 ml Q6HRT GAYE Administration Dextrose 12.5 gm 05/29/24 10:05 Dextrose 50% 25 Gm/50 Ml Syringe IV PUSH PRN PRN Hypoglycemia Protocol Enoxaparin Sodium 40 mg 05/29/24 09:00 05/30/24 09:18 Enoxaparin 40 Mg/0.4 Ml Syringe SUB-Q 40 mg DAILY GAYE Administration Glucagon 1 mg 05/29/24 10:05 Glucagon For Inj 1 Mg Vial IM PRN PRN Hypoglycemia Protocol Glucose 15 gm 05/29/24 10:05 Glucose Oral Gel 15 Gm Of Glucse In 37.5 Gm Tube PO PRN PRN Hypoglycemia Protocol Guaifenesin/Dextromethorphan 2 tab 05/30/24 17:30 05/30/24 17:03 Guaifenesin 600 Mg/Dextromethorphan 30 Mg Sr Tab 12 Hr PO Not Given Q12HR GAYE Ceftriaxone Sodium 1 gm in 50 mls @ 100 mls/hr 05/29/24 21:00 05/30/24 22:00 Rocephin 1 Gm/Ns 50 Ml IVPB Infused Q24H GAYE Infusion Azithromycin 500 mg in 250 mls @ 250 mls/hr 05/29/24 22:00 05/30/24 23:47 Zithromax IVPB Infused Q24H GAYE Infusion Dextrose/Sodium Chloride 1,000 mls @ 125 mls/hr 05/29/24 00:50 05/31/24 05:48 Dextrose 5% Sodium Chloride 0.45% IV CONT 125 mls/hr .Q8H GAYE Administration Dextrose 1,000 mls @ 100 mls/hr 05/29/24 10:05 Dextrose 5% 1,000 Ml IVPB PRN PRN Hypoglycemia Protocol Potassium Chloride 40 meq/ 520 mls @ 130 mls/hr 05/31/24 06:20 05/31/24 06:48 Sodium Chloride IVPB 05/31/24 10:19 130 mls/hr ONCE ONE Administration Ibuprofen 600 mg 05/28/24 21:22 Ibuprofen 600 Mg Tablet PO Q6H PRN Pain 4-6 or fever Insulin Aspart 2 - 5 units 05/29/24 12:00 05/31/24 07:52 Insulin Aspart (*Bkc) 100 Units/Ml SUB-Q Not Given TIDWM [facility] Protocol Insulin Aspart 1 - 2 units 05/29/24 21:00 05/30/24 22:54 Insulin Aspart (*Bkc) 100 Units/Ml SUB-Q Not Given HS [facility] Protocol Lorazepam 1 mg 05/29/24 10:07 Lorazepam (*Crx) 1 Mg Tablet PO Q4H PRN Withdrawal Ondansetron HCl 4 mg 05/28/24 21:23 Ondansetron Inj 4 Mg/2 Ml Vial IV PUSH Q6H PRN Nausea And Vomiting Saliva Substitute 15 ml 05/29/24 16:49 Saliva Substitute Combo Rinse 237 Ml Bottle PO QID PRN Dry Mouth Thiamine HCl 100 mg 05/30/24 09:00 05/30/24 09:09 Thiamine Hcl 200 Mg/2 Ml Vial IV PUSH 100 mg DAILY GAYE Administration Radiology Results: ITS Impressions Chest/Abdomen/Pelvis CT 05/28/24 19:44 IMPRESSION: Left upper lobe pneumonia with early infiltrate in the right lower lobe. Mediastinal lymphadenopathy is also detected, likely reactive. Hepatosplenomegaly. No additional acute pathology is identified within the abdomen or pelvis. Chest X-Ray 05/31/24 06:35 Impression: Worsening left upper lobe pneumonia. Mild nonspecific left basilar haziness could reflect additional pneumonia versus atelectatic change. Right lung clear. Labs Labs: Laboratory Results - last 24 hr 05/30/24 05/30/24 05/30/24 12:08 16:59 21:31 WBC RBC Hgb Hct MCV MCH MCHC RDW Plt Count MPV Sodium Potassium Chloride Carbon Dioxide Anion Gap BUN Creatinine Estim Creat Clear Calc Estimated GFR Glucose POC Capillary Glucose 191 H 172 H 166 H Calcium Total Bilirubin AST ALT Alkaline Phosphatase Total Protein Albumin 05/31/24 05/31/24 05:33 07:27 WBC 8.9 RBC 3.61 L Hgb 10.4 L Hct 30.4 L MCV 84.2 MCH 28.8 MCHC 34.2 RDW 13.3 Plt Count 204 MPV 11.0 H Sodium 133 L Potassium 2.5 L* Chloride 99 Carbon Dioxide 27 Anion Gap 7 BUN 14 Creatinine 0.70 Estim Creat Clear Calc 99 Estimated GFR > 60 Glucose 157 H POC Capillary Glucose 126 H Calcium 7.8 L Total Bilirubin 1.0 AST 69 H ALT 76 H Alkaline Phosphatase 124 Total Protein 6.0 L Albumin 2.8 L
[2024-05-31] MEDS: THIAMINE HCL 200 MG/2 ML VIAL 100 MG IV PUSH (09:54)
[2024-05-31] MEDS: ENOXAPARIN 40 MG/0.4 ML SYRINGE SUB-Q (09:54)
[2024-05-31] MEDS: guaiFENesin 600 MG/DEXTROMETHORPHAN 30 MG SR TAB 12 HR 2 TAB PO ×2 (09:54→20:45)
[2024-05-31 11:25] LABS: Glucose Point of Care 127 mg/dl (65-105)
[2024-05-31 16:34] LABS: Glucose Point of Care 128 mg/dl (65-105)
[2024-05-31] MEDS: SODIUM CHLORIDE 0.9% IV 1,000 ML 100 ML IV CONT (16:40)
[2024-05-31 18:33] LABS: Pneumococcal Antigen Urine DETECTED
[2024-05-31 19:59] LABS: Legionella pneumophila Ag Ur NOT DETECTED
[2024-05-31] MEDS: AZITHROMYCIN 500 MG/NS 250 ML 500 MG/250 ML BAG 250 MG IVPB (21:16)
[2024-05-31 21:23] LABS: Glucose Point of Care 148 mg/dl (65-105)
[2024-06-01] VITALS (9 sets, daily range): BP systolic 120–125; BP diastolic 71–73; PULSE 72–90; RESP 13–20; TEMP 36.1–36.6; O2SAT 95–98
[2024-06-01] MEDS: IPRATROPIUM 0.5 MG/ALBUTEROL SULFATE 2.5 MG AMPUL.NEB 3 ML INHALATION ×3 (02:11→14:44)
[2024-06-01] MEDS: SODIUM CHLORIDE 0.9% IV 1,000 ML 100 ML IV CONT (02:26)
[2024-06-01 07:45] LABS: Hematocrit 33.7 % (42.0-52.0); Hemoglobin 11.4 g/dL (14.0-18.0); Mean Corpuscular HGB Conc 33.8 g/dl (32-36); Mean Corpuscular Hemoglobin 28.6 pg (26-34); Mean Corpuscular Volume 84.7 fl (80-100); Mean Platelet Volume 10.7 fl (7.4-10.4); Platelet Count Result 268 k/mm3 (150-375); Red Blood Count 3.98 M/mm3 (4.6-6.20); Red Cell Distribution Width 13.5 % (11.5-14.5); White Blood Count 7.8 K/mm3 (4.5-10.0)
[2024-06-01 07:53] LABS: Glucose Point of Care 120 mg/dl (65-105)
[2024-06-01 07:57] LABS: Anion Gap 8 mmol/L (4-12); Blood Urea Nitrogen 13 mg/dL (9-20); Calcium 8.3 mg/dL (8.4-10.2); Carbon Dioxide 25 mmol/L (22-30); Chloride 104 mmol/L (98-107); Estimated CRCL calculation 101 ml/min; Estimated Glomerular Filt Rate > 60; Glucose 115 mg/dL (65-110); Potassium 3.4 mmol/L (3.4-5.0); Sodium 137 mmol/L (137-145)
[2024-06-01] MEDS: POTASSIUM CHLORIDE 20 MEQ ER TABLET 40 MEQ PO (08:45)
[2024-06-01] MEDS: THIAMINE HCL 200 MG/2 ML VIAL 100 MG IV PUSH (08:45)
[2024-06-01] MEDS: guaiFENesin 600 MG/DEXTROMETHORPHAN 30 MG SR TAB 12 HR 2 TAB PO (08:45)
[2024-06-01] MEDS: MAG HYDROX/AL HYDROX/SIMETH 30 ML UDC PO (08:48)
[2024-06-01 11:51] LABS: Glucose Point of Care 192 mg/dl (65-105)
--- NOTE | 2024-06-01 12:50 | P.DS_ITS ---
DS: Admitting Diagnosis Discharge Date 06/01/2024 Admitting Diagnosis pneumonia DS: Discharge Diagnosis Discharge Diagnosis (1) Pneumonia: Qualifiers: Laterality: bilateral Lung location: unspecified part of lung Pneumonia type: due to unspecified organism Qualified Code(s): J18.9 - Pneumonia, unspecified organism Code(s): J18.9 - Pneumonia, unspecified organism Status: Acute Assessment and Plan: * Pneumococcus * Recommend f/u with PCP for Prevar 20 (2) Sepsis: Qualifiers: Sepsis type: sepsis due to unspecified organism Sepsis acute organ dysfunction status: without acute organ dysfunction Qualified Code(s): A41.9 - Sepsis, unspecified organism Code(s): A41.9 - Sepsis, unspecified organism Status: Acute Assessment and Plan: * Pneumococcal pneumonia (3) Acute hyponatremia: Code(s): E87.1 - Hypo-osmolality and hyponatremia Status: Acute Assessment and Plan: * Resolved (4) Dehydration with hyponatremia: Code(s): E86.0 - Dehydration; E87.1 - Hypo-osmolality and hyponatremia Status: Acute Assessment and Plan: * Resolved (5) Hepatic steatosis: Code(s): K76.0 - Fatty (change of) liver, not elsewhere classified Status: Acute Assessment and Plan: * Likely due to alcohol with hepatomegaly and splenomegaly * He agrees to abstain from alcohol (6) Alcohol use: Code(s): F10.90 - Alcohol use, unspecified, uncomplicated Status: Acute Assessment and Plan: * He plans to abstain (7) Impaired glucose tolerance: Code(s): R73.02 - Impaired glucose tolerance (oral) Status: Acute Assessment and Plan: * A1c 6.0 * Needs outpatient f/u * Discussed Mediterranean diet with patient and his family and they will adapt his diet to conform with this DS: Summary Hospital Course Reason for hospitalization: Cough and mental status changes Hospital Course: 59-year-old gentleman had increasing cough fatigue confusion. Was found to have pulmonary infiltrates and urine was positive for pneumococcal antigen. He was hyponatremic with sodium of 123 on admission. Admitted to drinking 2 drinks a day and 6 per day on weekends. He had no alcohol withdrawal during admission. With IV saline his sodium normalized to 137 prior to discharge. He was up and about independently and tolerating his diet. White count improved from 12.5- 7.8. He remained afebrile. His post discharge plan was to abstain from alcohol. His AST and ALT were slightly elevated on admission at 69 and 76 respectively. A1c was 6.0%. He completed 5 days of IV azithromycin and ceftriaxone while an inpatient. Time Spent with Patient Time attestation: Total time spent providing and/or coordinating discharge services: Exam Narrative: HEENT: PERRL, sclerae nonicteric, pharyngeal mucosa pink and intact NECK: No JVD, adenopathy, or thyromegaly CHEST: Clear to auscultation. Normal effort. HEART: NL S1/S2, regular, no murmur ABDOMEN: BS+, soft, nontender, no mass, no bruits EXTREMITIES: No cyanosis, edema, or clubbing NEUROLOGIC: CN intact and symmetric to inspection. MUSCULOSKELETAL: Tone and strength symmetric. PSYCH: Alert. Oriented to person, place, and time. DS: Data Data Completed and Pending Labs on day of discharge: Labs from last 24 hours 06/01/24 06/01/24 06/01/24 11:40 07:49 07:15 WBC 7.8 RBC 3.98 L Hgb 11.4 L Hct 33.7 L MCV 84.7 MCH 28.6 MCHC 33.8 RDW 13.5 Plt Count 268 MPV 10.7 H Sodium 137 Potassium 3.4 Chloride 104 Carbon Dioxide 25 Anion Gap 8 BUN 13 Creatinine 0.68 L Estim Creat Clear Calc 101 Estimated GFR > 60 Glucose 115 H POC Capillary Glucose 192 H 120 H Calcium 8.3 L Ur L.pneumophila Ag Urine Pneumococcal Ag 05/31/24 05/31/24 05/28/24 20:51 16:17 23:36 WBC RBC Hgb Hct MCV MCH MCHC RDW Plt Count MPV Sodium Potassium Chloride Carbon Dioxide Anion Gap BUN Creatinine Estim Creat Clear Calc Estimated GFR Glucose POC Capillary Glucose 148 H 128 H Calcium Ur L.pneumophila Ag Not detected Urine Pneumococcal Ag Detected A Preliminary micro results at discharge 05/28/24 19:18 Blood Culture - Preliminary Blood 05/28/24 19:54 Blood Culture - Preliminary Blood Discharge Plan Discharge Discharging Clinician: Eben Lama Patient Disposition: Home, Self-Care Activity: as tolerated Diet: other - see discharge instructions Discharge Instructions: Follow the Mediterranean diet and avoid processed foods, especially processed sugar, flour, potatoes, and red meat. Patient Instructions: Antibiotic Form Patient Language: Swedish Stand Alone Forms: General Discharge Information Follow-up/Referrals: Chris,NERISSA Moses [Non-Staff] - (Discharged 06/01 after treatment for pneumococcal pneumonia. Needs Prevnar 20. Needs follow up for mild liver enzyme elevation and alcohol-related fatty liver. Needs follow up for impaired glucose tolerance (prediabetes) with A1c 6.0%. Needs encouragement to abstain from alcohol. Needs encouragement to follow the Mediterranean diet. ) Discharge Medications: Discontinued ondansetron HCl [Zofran] 4 mg tablet 4 mg PO Q6H PRN (Reason: nausea and vomiting) Qty: 14 0RF Date of admission: 05/28/24 20:36 Primary Care Provider: UNKNOWN,DOCTOR Admitting Provider: Elida Gillis Attending physician on admission: Elida Gillis Condition: Stable
[2024-06-01] MEDS: AZITHROMYCIN 500 MG/NS 250 ML 500 MG/250 ML BAG 250 MG IVPB (13:30)
== END 2024-06-01 15:40 | disposition home or self-care (01) | DRG 720 ==
LOC: ANHED 21:02 → ANH3MEDSUR 06-01 13:10
PROVIDERS: Emergency Medicine; Nurse Practitioner Gerontology; Physician Assistant; Admitting Provider Internal Medicine; Emergency Provider Emergency Medicine; Visit Provider Internal Medicine
DX: A41.9 Sepsis, unspecified organism (principal); J18.9 Pneumonia, unspecified organism; E87.1 Hypo-osmolality and hyponatremia; E86.0 Dehydration; K76.0 Fatty (change of) liver, not elsewhere classified; F10.90 Alcohol use, unspecified, uncomplicated; E80.6 Other disorders of bilirubin metabolism; Z20.822 Contact with and (suspected) exposure to COVID-19
CPT/HCPCS: 36415; 71045; 71260; 74177; 80048; 80053; 81001; 82607; 82746; 82948; 83036; 83605; 83690; 83735; 84145; 84484; 85025; 85027; 85055; 87040; 87449; 87637; 87899; 93005; 94640; 96365; 99285; A9270; J0456; J0696; J1650; J3411; J3480; J7030; J7040; Q9967